=== PATIENT | female | born 1945 | race Caucasian/White ===

== ENCOUNTER 2024-01-10 14:15 | Emergency (ER) | payer MEDICARE, SELFPAY ==
--- NOTE | ~2024-01-10 | CT_ITS ---
EXAMINATION: CT thoracic and lumbar spine. INDICATION: Trauma TECHNIQUE: Multiple 2 mm axial images were obtained through the thoracic and lumbar spine without IV contrast enhancement. Bone window and soft tissue window images were reconstructed. Coronal and sagittal bone window images were reconstructed from the axial image data. Dose reduction technique: One or more of the following individual dose optimization techniques were used including: Automated exposure control, mA and/or kV were adjusted according to patient size or iterative reconstruction. DLP: 1151 m Gycm FINDINGS: Mild scoliotic curvature of the thoracolumbar spine. Diffuse decrease in osseous mineralization. The thoracic vertebral bodies demonstrate normal height. Overall sagittal alignment is maintained. The intervertebral disc heights appear relatively preserved. Multilevel mild thoracic spondylosis with endplate osteophytes. Spinal cord stimulator leads are seen entering the thoracic spine at the level of T9-T10 and terminating approximately level of T8. Streak artifacts from the spinal cord stimulator leads slightly limited evaluation of the adjacent osseous structures. No definite evidence of acute fracture involving the thoracic spine. No traumatic malalignment. The paraspinous soft tissues appear unremarkable. Mild midline postsurgical scarring in the lower thoracic spine. Included lungs demonstrate bibasilar atelectasis. The lumbar vertebral bodies demonstrate normal height. Degenerative grade 1 anterolisthesis of L4 over L5. Degenerative spondylosis with osteophytes, intervertebral disc space narrowing and endplate sclerosis most pronounced at L2-L3. Moderate intervertebral disc space narrowing at L3-L4 and mild to moderate intervertebral disc space narrowing at L4-L5. Degenerative intradiscal vacuum phenomena in at multiple levels. Multilevel facet arthropathy, most prominent at L3-L4 through L5-S1. Degenerative cystic changes involving the spinous process of L5 and S1. No acute fracture involving the lumbar spine. The paraspinous soft tissues appear unremarkable. Stimulator battery pack in the left gluteal soft tissues. Partially visualized sigmoid colonic diverticulosis. CT/CT thoracic spine wo IV con IMPRESSION: Diffuse decrease in osseous mineralization slightly limits evaluation for subtle fractures. No acute fracture involving the thoracic and lumbar spine. Spinal cord stimulator leads as described with streak artifact slightly limiting evaluation of adjacent osseous structures. Multilevel thoracolumbar spondylosis as detailed.
--- NOTE | ~2024-01-10 | CT_ITS ---
EXAMINATION: CT HEAD WITHOUT CONTRAST, CT CERVICAL SPINE WITHOUT CONTRAST CLINICAL INFORMATION: Trauma. COMPARISON: None. TECHNIQUE: Multidetector CT examination of the head is performed without contrast. Multidetector CT of the cervical spine without contrast. Multiplanar postprocessing This CT examination was performed using dose optimization techniques as appropriate, variously including the following: *Automated exposure control *Adjustment of mA and/or kV according to patient size (this includes techniques or standardized protocols for targeted exams where dose is matched to indication/reason for exam; i.e. extremities or head) *Use of iterative reconstruction technique DLP: HEAD 712 mGy-cm DLP: CERVICAL 302 mGy-cm FINDINGS: Head CT: There is no evidence of a recent intracranial hemorrhage or extra-axial collection. The midline structures are nondisplaced. The ventricles, cisterns, and sulci are within normal limits. There is no evidence of an intra-axial mass. There are no suspicious focal areas of abnormal brain attenuation. The mora-white interface is within normal limits. There is no evidence of acute territorial infarct. There is some nonspecific white matter low attenuation. There may be a trace amount of fluid in the right side of the sphenoid sinus. Right greater than left nasal fractures. Cervical CT: No acute fracture. No suspicious focal lesion. No significant loss of volume. There are some marginal osteophytes. There is extensive facet disease bilaterally. This might account for trace anterolisthesis of C3 relative to C4 and C5 relative to C6. No suspicious abnormality in the cervical soft tissues. CT/CT cervical spine wo IV con IMPRESSION: 1. There is no evidence of a recent intracranial hemorrhage. 2. No acute infarct. 3. No acute fracture of the cervical spine Bilateral nasal fractures which appear displaced right greater than left. These might be acute
--- NOTE | 2024-01-10 14:34 | ECG_ITS ---
Test Reason : FALL Blood Pressure : / mmHG Vent. Rate : 063 BPM Atrial Rate : 063 BPM P-R Int : 188 ms QRS Dur : 078 ms QT Int : 408 ms P-R-T Axes : 060 006 028 degrees QTc Int : 417 ms Normal sinus rhythm Normal ECG No previous ECGs available Referred By: Keshia Rashid Electronically Signed By:ANI KEITA MD
[2024-01-10 14:45] VITALS: BP 142/78; BP 149/71; PULSE 64; PULSE 76; RESP 14; TEMP 36.5; O2SAT 98; O2SAT 99; BMI 37.1
--- NOTE | 2024-01-10 14:56 | ED.GENADULT ---
HPI - General Adult General Chief complaint: Fall Stated complaint: SLIP&FALL,+HS,-LOC,FOREHEAD LAC,+COLLAR Time Seen by Provider: 01/10/24 14:21 History of Present Illness ED Provider: Dr. Rashid HPI narrative: 78 y/o F patient; PMH depression, obesity; presents as fall while walking in [employer]. The patient states she thinks she tripped over her shoe. She struck her left-sided head on the ground and landed on the left side of her body. She did not lose consciousness. She was able to get to her knees but needed assistance to get up completely. She primarily complains of left-sided body pain. She denies use of blood thinners. She states recently she used Flexeril (last dose last night) for lower back pain. Related Data Allergies Allergy/AdvReac Type Severity Reaction Status Date / Time No Known Allergies Allergy Verified 01/10/24 14:50 Review of Systems Review of Systems: Yes all other systems are reviewed and are negative Neurologic: Denies Abnormal speech present and Denies Sensory deficit (Neuro) [facility] Past Medical History Attestation statement: The following information was validated with the patient. Source: old records reviewed Social History Social History Alcohol intake: current Alcohol intake frequency: holidays/special occasions only Smoked in Last 30 Days: No Use of substances other than those prescribed or required for medical reasons: No Advance Directives: No Advance Directives Information Provided: No Do you have a plan to hurt others: No Plan Physical Exam ED Vital Signs: Vital Signs - 24 hr 01/10/24 14:45 01/10/24 15:50 Temperature 97.7 F 97.6 F Pulse Rate 64 60 Respiratory Rate 14 20 Blood Pressure 149/71 H 169/62 H Pulse Oximetry 99 99 Oxygen Delivery Method Room Air Room Air BMI result Body Mass Index 37.1 Patient is afebrile and hemodynamically stable. Const General: cooperative Orientation/consciousness: patient oriented x3 HENMT Other: Two linear lacerations above left eyebrow. Superior laceration approx 6cm, inferior laceration approx 4cm. Nasal bones displaced to the left-side, small area of punctate bleeding in right nare. Ears: TM's normal bilaterally Eyes General: appearance normal, both eyes and all related structures Pupils: Equal, round and reactive pupils present EOM: EOMs intact bilaterally Neck Other: c-collar in place Neck: Yes normal visual inspection and No tender Chest Chest palpation & inspection: normal inspection of the chest and normal palpation of entire chest wall Resp Effort & Inspection: normal respiratory effort, able to speak in complete sentences, no cough and no respiratory distress Auscultation: clear to auscultation bilaterally Cardio Rate: regular rate Rhythm: regular rhythm Peripheral pulses: Peripheral pulses 2+ throughout GI Inspection: Yes normal to inspection, No Abdominal wall edema and No distended Palpation (GI): Soft to palpation, not firm, nontender, no guarding and not rigid Auscultation: normal bowel sounds Back/Spine/Pelvis Other: Diffuse mid-line tenderness without focality. Neuro General: patient oriented x3 Cranial nerves: Yes Equal, round and reactive pupils present Cognition (Neuro): normal cognition Speech: No Abnormal speech present Motor exam (neuro): 5/5 motor strength present throughout Sensory Exam: No Sensory deficit (Neuro) Extrem Other: FROM upper and lower extremities, NVI. Course Course Course Narrative: Patient is afebrile and hemodynamically stable. Ordered EKG, CT Head/Neck/Thoracic/Lumbar Spine. Providing pain control with Tylenol, plan to update tetanus. Reevaluation(s) Reevaluation #1: CT Head/Neck/Thoracic/Lumbar Spine unremarkable other than bilateral nasal fx. Patient initially had small episode of epistaxis but resolved without acute intervention. EKG reassuring. Patient observed in the emergency department - ambulating without difficulty. Please see procedure note for laceration repair. Plan: Discharge to home with PCP follow up Return precautions given Provided ENT follow up Medications Administered Discontinued Medications Generic Name Dose Route Start Last Admin Trade Name Freq PRN Reason Stop Dose Admin Acetaminophen 975 mg 01/10/24 14:34 01/10/24 16:27 Acetaminophen 325 Mg Tablet PO 01/10/24 14:35 975 mg ONCE ONE Administration Diphtheria/Tetanus/Acell Pertussis 0.5 ml 01/10/24 16:15 01/10/24 16:26 Diphth,Pertus(Acell),Tet Adult 0.5 Ml Syringe IM 01/10/24 16:16 0.5 ml .ONCE ONE Administration Lidocaine/Epinephrine 10 ml 01/10/24 16:00 08/09/24 16:26 Lidocaine Hcl 1%/Epi 1:100,000 10 Ml Vial INFILTRATI 01/10/24 16:01 10 ml ONCE ONE Administration Procedures Laceration Laceration 1: Site: face Side (If applicable): right Size (cm): 6 Description: linear Depth: simple, single layer Local Anesthetic: lidocaine 1% and with epi Amount of anesthesia used (mL): 5 Pre-repair: wound explored and irrigated extensively Skin layer closed with: nylon Size (cm): 5-0 Number of sutures: 4 Technique: simple, interrupted Laceration 2: Site: face Side (If applicable): right Size (cm): 4 Description: linear Depth: simple, single layer Local Anesthetic: lidocaine 1% and with epi Amount of anesthesia used (mL): 5 Pre-repair: wound explored and irrigated extensively Skin layer closed with: nylon Size (cm): 5-0 Number of sutures: 6 Technique: simple, interrupted Medical Decision Making Independent Interpretation I performed an independent interpretation of an: EKG Interpretation: NSR 63BPM without ischemic changes Radiology Impression Discussion of test interpretation with radiology: I have reviewed the radiologist's reading. Radiologist Impression: EXAMINATION: CT thoracic and lumbar spine. INDICATION: Trauma TECHNIQUE: Multiple 2 mm axial images were obtained through the thoracic and lumbar spine without IV contrast enhancement. Bone window and soft tissue window images were reconstructed. Coronal and sagittal bone window images were reconstructed from the axial image data. Dose reduction technique: One or more of the following individual dose optimization techniques were used including: Automated exposure control, mA and/or kV were adjusted according to patient size or iterative reconstruction. DLP: 1151 m Gycm FINDINGS: Mild scoliotic curvature of the thoracolumbar spine. Diffuse decrease in osseous mineralization. The thoracic vertebral bodies demonstrate normal height. Overall sagittal alignment is maintained. The intervertebral disc heights appear relatively preserved. Multilevel mild thoracic spondylosis with endplate osteophytes. Spinal cord stimulator leads are seen entering the thoracic spine at the level of T9-T10 and terminating approximately level of T8. Streak artifacts from the spinal cord stimulator leads slightly limited evaluation of the adjacent osseous structures. No definite evidence of acute fracture involving the thoracic spine. No traumatic malalignment. The paraspinous soft tissues appear unremarkable. Mild midline postsurgical scarring in the lower thoracic spine. Included lungs demonstrate bibasilar atelectasis. The lumbar vertebral bodies demonstrate normal height. Degenerative grade 1 anterolisthesis of L4 over L5. Degenerative spondylosis with osteophytes, intervertebral disc space narrowing and endplate sclerosis most pronounced at L2-L3. Moderate intervertebral disc space narrowing at L3-L4 and mild to moderate intervertebral disc space narrowing at L4-L5. Degenerative intradiscal vacuum phenomena in at multiple levels. Multilevel facet arthropathy, most prominent at L3-L4 through L5-S1. Degenerative cystic changes involving the spinous process of L5 and S1. No acute fracture involving the lumbar spine. The paraspinous soft tissues appear unremarkable. Stimulator battery pack in the left gluteal soft tissues. Partially visualized sigmoid colonic diverticulosis. CT/CT lumbar spine wo IV con IMPRESSION: Diffuse decrease in osseous mineralization slightly limits evaluation for subtle fractures. No acute fracture involving the thoracic and lumbar spine. Spinal cord stimulator leads as described with streak artifact slightly limiting evaluation of adjacent osseous structures. Multilevel thoracolumbar spondylosis as detailed. EXAMINATION: CT HEAD WITHOUT CONTRAST, CT CERVICAL SPINE WITHOUT CONTRAST CLINICAL INFORMATION: Trauma. COMPARISON: None. TECHNIQUE: Multidetector CT examination of the head is performed without contrast. Multidetector CT of the cervical spine without contrast. Multiplanar postprocessing This CT examination was performed using dose optimization techniques as appropriate, variously including the following: *Automated exposure control *Adjustment of mA and/or kV according to patient size (this includes techniques or standardized protocols for targeted exams where dose is matched to indication/reason for exam; i.e. extremities or head) *Use of iterative reconstruction technique DLP: HEAD 712 mGy-cm DLP: CERVICAL 302 mGy-cm FINDINGS: Head CT: There is no evidence of a recent intracranial hemorrhage or extra-axial collection. The midline structures are nondisplaced. The ventricles, cisterns, and sulci are within normal limits. There is no evidence of an intra-axial mass. There are no suspicious focal areas of abnormal brain attenuation. The mora-white interface is within normal limits. There is no evidence of acute territorial infarct. There is some nonspecific white matter low attenuation. There may be a trace amount of fluid in the right side of the sphenoid sinus. Right greater than left nasal fractures. Cervical CT: No acute fracture. No suspicious focal lesion. No significant loss of volume. There are some marginal osteophytes. There is extensive facet disease bilaterally. This might account for trace anterolisthesis of C3 relative to C4 and C5 relative to C6. No suspicious abnormality in the cervical soft tissues. CT/CT head/brain wo IV con IMPRESSION: 1. There is no evidence of a recent intracranial hemorrhage. 2. No acute infarct. 3. No acute fracture of the cervical spine Bilateral nasal fractures which appear displaced right greater than left. These might be acute Discharge Plan Discharge Clinical Impression: Fall, Back pain, Head trauma, Facial laceration, Fracture of nasal bone Patient Disposition: Home, Self-Care Instructions: Head Injury (ED) Additional Instructions: As we discussed, you were seen today after a fall with head trauma. CT scans of your head, neck, and back were reassuring. Your tetanus was updated. You will need to get your stitches out in 7 days. Call to schedule an appointment with ENT to discuss your broken nose. Please follow up with your PCP within 7 days for suture removal. Return to the emergency department with: Any other falls Headache Numbness/weakness/tingling of your arms or legs Slurred Speech Facial Droop You can use Tylenol 1g every 6 hours as needed for pain. Referrals: Corbin Au [Physician] - 2 days (Call to arrange an appointment to discuss your broken nose ) Print Language: Divehi
[2024-01-10 15:50] VITALS: BP 169/62; PULSE 60; RESP 20; TEMP 36.4; O2SAT 99
[2024-01-10] MEDS: Diphth,Pertus(ACell),Tet Adult 0.5 ML SYRINGE IM (16:26)
[2024-01-10] MEDS: Lidocaine HCl 1%/Epi 1:100,000 10 ML VIAL INFILTRATI (16:26)
[2024-01-10] MEDS: Acetaminophen 325 MG TABLET 975 MG PO (16:27)
== END 2024-01-10 21:18 | disposition home or self-care (01) ==
PROVIDERS: Emergency Provider Emergency Medicine; PCP Internal Medicine
DX: S09.90XA Unspecified injury of head, initial encounter (principal); S01.112A Laceration without foreign body of left eyelid and periocular area, initial encounter; S02.2XXA Fracture of nasal bones, initial encounter for closed fracture; W01.0XXA Fall on same level from slipping, tripping and stumbling without subsequent striking against object, initial encounter; M54.50 Low back pain, unspecified; Y93.01 Activity, walking, marching and hiking; Y92.59 Other trade areas as the place of occurrence of the external cause; Y99.9 Unspecified external cause status; Z23 Encounter for immunization
CPT/HCPCS: 12054; 70450; 72125; 72128; 72131; 90471; 90715; 93005; 99284

== ENCOUNTER → 2024-01-10 14:34 | Outpatient (BNV) | payer MEDICARE, SELFPAY | PROVIDERS: Emergency Provider Emergency Medicine; PCP Internal Medicine; Visit Provider Internal Medicine Cardiovascular Disease | DX: R55 Syncope and collapse (principal) | CPT/HCPCS: 93010 ==